=== PATIENT | female | born 1995 | race Caucasian/White ===

== ENCOUNTER 2020-08-24 18:24 | Emergency (ER) | payer OTHER, MEDICAID, SELFPAY ==
[2020-08-24 18:30] VITALS: BP 125/83; PULSE 87; RESP 18; TEMP 36; O2SAT 98; BMI 20.7
--- NOTE | 2020-08-24 19:32 | ED_ITS ---
HPI - Medical Clearance General Chief complaint: Medical Clearance Stated complaint: psych eval Time Seen by Provider: 08/24/20 19:19 Source: patient and family Mode of arrival: ambulatory Limitations: no limitations History of Present Illness HPI Narrative: 25-year-old female with a past medical history of ADHD, autism, depression, OCD, seizure disorder here for medical clearance for psychiatric hospital placement. Mom is with patient and she tells me that the patient has a bed at [facility] and she is here for medical clearance. No physical complaints Related Information Allergies Allergy/AdvReac Type Severity Reaction Status Date / Time atomoxetine [From Strattera] AdvReac Agitated Verified 08/24/20 18:29 lorazepam [From Ativan] AdvReac Agitated Verified 08/24/20 18:29 Review of Systems Review of Systems: Yes all other systems are reviewed and are negative Constitutional: Constitutional: Reports no additional constitutional complaints and Denies fever(s) Eyes: Eyes: Reports no additional eye complaints and Denies change in vision ENT: Reports system reviewed and no additional complaints, except as documented, Denies nasal congestion, Denies nasal discharge and Denies neck pain Cardiovascular: Cardiovascular: Reports no additional cardiovascular complaints, Denies chest pain, Denies leg edema and Denies dyspnea Respiratory: Respiratory: Reports no additional respiratory complaints, Denies cough and Denies dyspnea Gastrointestinal: Gastrointestinal: Reports no additional gastrointestinal complaints, Denies abdominal pain, Denies diarrhea, Denies nausea and Denies vomiting Genitourinary: Genitourinary: Reports no additional female genitourinary complaints Musculoskeletal: Musculoskeletal: Reports no additional musculoskeletal complaints, Denies back pain and Denies neck pain Integumentary/Breasts: Skin/Breast: Reports system reviewed and no additional complaints, except as docu and Denies rash Neurologic: Reports system reviewed and no additional complaints, except as documented Psychiatric: Psychiatric: Denies homicidal ideation and Denies suicidal ideation [facility] Past Medical History Attestation statement: The following information was validated with the patient. Source: old records reviewed and nursing notes reviewed Medical History ADHD Autistic behavior Depression Genetic disorder OCD (obsessive compulsive disorder) Seizure Social History Social History Advance Directives: No Advance Directives Information Provided: Yes Patient : No Physical Exam Vital Signs: Vital Signs: Last Vital Signs Temp 96.8 F 08/24/20 18:30 Pulse 87 08/24/20 18:30 Resp 18 08/24/20 18:30 BP 125/83 08/24/20 18:30 Pulse Ox 98 08/24/20 18:30 Body Mass Index 20.7 Const: General: cooperative Limitations: no limitations HENMT: Head: Yes normal to inspection Ears: hearing grossly normal bilaterally General nose exam: Normal external nose present Face and sinus: Yes normal facial exam Mouth: Normal oral and palatal mucosa present Throat: Yes posterior oropharynx normal Eyes: General: appearance normal, both eyes and all related structures Neck: Neck: Yes normal visual inspection Chest: Chest palpation & inspection: normal inspection of the chest Resp: Effort & Inspection: normal respiratory effort Auscultation: clear to auscultation bilaterally Cardio: Rate: regular rate Rhythm: regular rhythm Peripheral pulses: Peripheral pulses 2+ throughout Back/Spine/Pelvis: Thoracic/Lumbar Spine: thoracic and lumbar spine normal to inspection Neuro: General: moves all extremities Extrem: General: Yes normal to inspection Course Course Course Narrative: Patient here for medical clearance for psychiatric placement. Called and spoke to the [facility] in worker and they are requesting labs urine and COVID screen. These were ordered. 1945-mom kept the desk and tells me that unfortunately the bed will not be available tonight and they told the mother that she would have to wait in the emergency department overnight with her daughter. She tells me that this is inconvenient for her and she would rather do this from home. As patient is here voluntarily with mom and there is no immediate safety risks I do not feel like we need to hold her here.. She is aware of her resources will follow up with [facility] tomorrow. Reviewed worrisome signs and symptoms of when to return to the emergency department. Comfortable discharge home. Discharge Plan Discharge Clinical Impression: Encounter for medical screening examination Patient Disposition: Home, Self-Care Instructions: Normal Exam (ED) Referrals: Danielito Carolina MD [Primary Care Provider] - 2 days Discharge Date/Time: 08/24/20 19:45
== END 2020-08-24 19:45 | disposition home or self-care (01) ==
PROVIDERS: Emergency Provider Internal Medicine; PCP Internal Medicine
DX: Z02.2 Encounter for examination for admission to residential institution (principal); F90.9 Attention-deficit hyperactivity disorder, unspecified type; F42.9 Obsessive-compulsive disorder, unspecified; F32.9 Major depressive disorder, single episode, unspecified; G40.909 Epilepsy, unspecified, not intractable, without status epilepticus; F84.0 Autistic disorder
CPT/HCPCS: 99283